=== PATIENT | female | born 1990 | race Caucasian/White ===

== ENCOUNTER → 2017-03-12 | Outpatient (CLI) | payer OTHER | END | disposition home or self-care (01) | LOC: C.PAPS 16:24 | PROVIDERS: ATTEND Physician Assistant | DX: Z12.4 Encounter for screening for malignant neoplasm of cervix (principal) ==

== ENCOUNTER → 2018-05-17 | Outpatient (CLI) | payer BC | END | disposition home or self-care (01) | LOC: C.LAB1850 14:04 | PROVIDERS: ATTEND Obstetrics & Gynecology | DX: E04.9 Nontoxic goiter, unspecified (principal) ==

== ENCOUNTER 2019-03-26 07:33 | Inpatient (IN) ==
[2019-03-26] MEDS ORDERED: LACTATED RINGER'S 1,000 ML IV PRN (08:14)
[2019-03-26] MEDS ORDERED: OXYTOCIN 30 UNITS/500 ML BAG IV PRN ×2 (08:14→13:12)
--- NOTE | 2019-03-26 08:14 | History & Physical Report ---
Date of Service March 26, 2019 Assessment & Plan (1) Gestational hypertension w/o significant proteinuria in 3rd trimester: BP currently below severe range despite discomforts of labor. Continue to observe. Present on Admission?: Yes (2) Normal labor and delivery: SROM and cervical change. Plans natural childbirth for now. Expectant management. Present on Admission?: Yes History of Present Illness Primary Care Provider: BENITA Mendoza 28yo presents with LOF clear at home, and painful contractions Q3-7 throughout the night. +FM no VB. 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; negative [place] teeth removed 2007 Surgical History H/O left knee surgery 2006 Family History Mother Hypertension Father Hypertension Aunt Hodgkins lymphoma Social History Preferred Language: [place] Communication Ability: Effective Beliefs That Will Affect Care: None marital status: Current Living Situation: Spouse Other Information That Helps Us Care for You: No Feels Safe at Home: Yes Smoking Status: Former smoker Do You Dip or Chew Tobacco: No Second Hand Exposure: No Tobacco Cessation Education Requested by Patient: No Hx Alcohol Use: No Hx Substance Use: No Physical Exam Genitourinary: Manual OB Exam: + cervical dilation 7 cm, + cervical effacement 100%, + station -1 and + amniotic fluid (forebag swept for additional clear fluid) clear OB Exam Monitor Tracing: + category I Results & Data Vital Signs (Past 12 Hours) Vital Signs Temp Pulse Resp BP 03/26/19 07:57 97 H 149/100 H 03/26/19 07:42 37.0 C 101 H 20 145/98 H
[2019-03-26 08:36] LABS: Hematocrit (blood only) 37.3 % (37-47); Hemoglobin 12.8 g/dL (12.0-16.0); Mean Corpuscular Volume 85.6 fL (80-100); Mean Platelet Volume 10.3 fL (7.4-10.4); Platelet Count 206 K/uL (130-400); RDW Coefficient of Variation 13.6 % (11.5-14.5); RDW Standard Deviation 42.1 fL (36.4-46.3); Red Blood Count 4.36 M/uL (4.2-5.4); White Blood Count 7.15 K/uL (4.8-10.8)
[2019-03-26 08:38] LABS: Mean Corpuscular Hgb Conc 34.3 g/dL (32-36)
[2019-03-26] MEDS: IBUPROFEN 600 MG TAB PO PRN ×2 (11:45→15:41)
[2019-03-26] MEDS ORDERED: ACETAMINOPHEN 325 MG TAB PO PRN (13:12)
[2019-03-26] MEDS ORDERED: BENZOCAINE 20% AER SPR 82.5 GM CAN EXT PRN (13:12)
[2019-03-26] MEDS ORDERED: HYDROCORTISONE ACETATE 25 MG SUPP PR PRN (13:12)
[2019-03-26] MEDS ORDERED: OXYCODONE/ACETAMINOPHEN 5mg/325mg TAB PO PRN (13:12)
[2019-03-26] MEDS ORDERED: DIPHTHERIA/TETANUS/PERTUSSIS 0.5 ML SYR/VIAL IM ONE (13:12)
[2019-03-26] MEDS ORDERED: SUPERCREAM 0.870% 15 GM JAR EXT PRN (13:12)
--- NOTE | 2019-03-26 15:33 | Procedure Note ---
Vaginal Delivery Summary Date of Service March 26, 2019 Vaginal Delivery Summary Vaginal Delivery Summary: Pre-delivery diagnoses: 28yo @ 38 1/7, spontaneous labor with SROM, SMA+ Post-delivery diagnoses: same Procedure: spontaneous vaginal delivery, repair of 2nd degree perineal laceration Surgeon: Mily Reddy DO Complications: none Findings: Viable female . Apgars: 8/9 . Weight pending, please see nursery records Estimated blood loss: 300ml Description of delivery: The patient progressed to complete without anesthesia. She then began to push. She spontaneously vaginally delivered a viable female from the cephalic presentation. The head delivered in LAURA position, nuchal cord x 1 was easily reduced. The anterior shoulder delivered, followed by the posterior shoulder, followed by the body. The baby was placed on mother's abdomen and a spontaneous cry was heard. Delayed cord clamping was employed, and the cord was doubly clamped and cut. Cord blood was obtained. The placenta was delivered spontaneously intact with a 3-vessel cord. The uterus and vagina were swept of clots and debris. IV pitocin was given. The uterus became firm. The cervix, vagina, and perineum were inspected and a 2nd degree perineal laceration was noted and repaired in standard fashion. Excellent hemostasis was observed. The mother and baby are recovering in stable and good condition in the room. Sponge, needle, and instrument counts were correct x 2. Mily Reddy DO [facility] [place]
[2019-03-26] MEDS: DOCUSATE SODIUM 100 MG CAP PO SCH (20:45)
[2019-03-27] MEDS: IBUPROFEN 600 MG TAB PO PRN ×2 (04:37→22:32)
[2019-03-27 06:46] LABS: Hematocrit (blood only) 33.1 % (37-47); Hemoglobin 11.3 g/dL (12.0-16.0); Mean Corpuscular Hgb Conc 34.1 g/dL (32-36); Mean Corpuscular Volume 86.9 fL (80-100); Platelet Count 203 K/uL (130-400); Red Blood Count 3.81 M/uL (4.2-5.4); White Blood Count 10.79 K/uL (4.8-10.8)
--- NOTE | 2019-03-27 06:55 | Obstetrical Progress Note ---
Date of Service March 27, 2019 Assessment & Plan (1) (spontaneous vaginal delivery): -vital signs reviewed and WNL -last Hgb 12.8 -Blood type: A+, GBS-, Rubella Immune -pt doing well clinically -encourage ambulation, monitor and control pain with motrin tylenol, cont regular diet, monitor lochia -cont encourage breast feeding -anticipate d/c tomorrow Subjective 28 y/o PPD1 found in bed this morning in NAD. Reports no acute overnight events. Pt states that she has no pain other than appropriate soreness. Tolerating PO intake without N/V. Able to ambulate without issue. She is breast feeding without issue. No issues with voiding, no BM yet but passing gas. No other acute concerns or complaints. Review of Systems All systems reviewed & are unremarkable except as noted in HPI & below Physical Exam Constitutional WD/WN, vitals as above Respiratory normal respiratory effort, lungs clear to auscultation Cardiovascular RRR, no murmur, no edema Gastrointestinal (Abdomen) mild abd tenderness Fundus at U, please correlate with attending findings Skin no rashes, warm and dry Psychiatric A+Ox3, euthymic affect Lymphatic no LE swelling, no calf tenderness Results & Data Vital Signs (Past 12 Hours) Vital Signs Temp Pulse Resp BP 03/27/19 04:35 36.9 C 87 16 135/88 03/27/19 00:15 37.2 C 75 18 133/88 03/26/19 20:45 36.9 C 88 18 127/83 Laboratory Results Laboratory Results - last 24 hr 03/26/19 03/27/19 08:25 06:25 WBC 7.15 10.79 RBC 4.36 3.81 L Hgb 12.8 11.3 L Hct 37.3 33.1 L MCV 85.6 86.9 MCH 29.4 29.7 MCHC 34.3 34.1 RDW Std Deviation 42.1 44.0 RDW Coeff of Veronica 13.6 14.0 Plt Count 206 203 MPV 10.3 10.0 Medications Administered Current Inpatient Medications Acetaminophen (Tylenol) 650 mg PO Q6H PRN PRN Reason: Pain/BOBBY/Fever Stop: 04/25/19 13:11 Benzocaine (Dermoplast Pain Relieving [place]) 1 appln EXT PRN PRN PRN Reason: Perineal Discomfort Stop: 04/25/19 13:11 Last Admin: 03/26/19 15:41 Dose: 82.5 appln Documented by: Bisacodyl (Dulcolax) 5 mg PO 1999 [facility] Stop: 03/27/19 20:01 Bisacodyl (Dulcolax) 10 mg SD DAILY PRN PRN Reason: No BM on 2nd post- day Stop: 03/28/19 23:59 Cetirizine HCl (Zyrtec) 10 mg PO DAILY [facility] Stop: 04/26/19 08:59 Cocaine HCl (Supercream 0.870%) 1 gm EXT BID PRN PRN Reason: Hemorrhoidal Inflammation Stop: 04/09/19 13:11 Last Admin: 03/26/19 15:41 Dose: 1 appln Documented by: Docusate Sodium (Colace) 100 mg PO BID [facility] Stop: 04/25/19 20:59 Last Admin: 03/26/19 20:45 Dose: 100 mg Documented by: Hydrocortisone (Anusol Hc) 25 mg SD BID PRN PRN Reason: Hemorrhoidal Inflammation Stop: 04/25/19 13:11 Oxytocin (Pitocin) 30 units in 500 mls @ 333.333 mls/hr IV .Q1H30M PRN; Protocol PRN Reason: Bleeding Control Stop: 04/25/19 13:11 Ibuprofen (Motrin) 600 mg PO Q6H PRN PRN Reason: Pain Stop: 04/25/19 11:32 Last Admin: 03/27/19 04:37 Dose: 600 mg Documented by: Oxycodone/Acetaminophen (Percocet 5mg/325mg) 1 tab PO Q4H PRN PRN Reason: Pain not relieved by... Stop: 04/09/19 13:11 Prenat Multivit/Restaurant Kitchen Manager/Iron/Folic Ac ( Vitamin) 1 tab PO QAM [facility] Stop: 04/26/19 08:59 Resident Activity Tracking Resident Involvement: Resident Care Provided Care Provided: OB Delivery
[2019-03-27] MEDS ORDERED: PRENATAL VITAMIN 1 TAB ONE (07:45)
[2019-03-27] MEDS: PRENATAL VITAMIN 1 TAB PO SCH (08:36)
[2019-03-27] MEDS: DOCUSATE SODIUM 100 MG CAP PO SCH ×2 (08:36→20:14)
[2019-03-27] MEDS: CETIRIZINE HCL 10 MG TABLET PO SCH (09:42)
[2019-03-27] MEDS ORDERED: BISACODYL 5 MG TABEC PO SCH (20:00)
[2019-03-28] MEDS ORDERED: BISACODYL 10 MG SUPP PR PRN (07:00)
[2019-03-28 07:16] LABS: Hematocrit (blood only) 32.3 % (37-47)
--- NOTE | 2019-03-28 07:21 | Obstetrical Progress Note ---
Date of Service <Estiven ShandaBrielle Cotto, - Last Filed: 03/28/19 07:21> March 28, 2019 Assessment & Plan <Estiven Cotto - Last Filed: 03/28/19 07:21> (1) (spontaneous vaginal delivery): -vital signs reviewed and WNL -last Hgb 11.3 -Blood type: A+, GBS-, Rubella Immune -pt doing well clinically -encourage ambulation, monitor and control pain with motrin tylenol, cont regular diet, monitor lochia -cont encourage breast feeding -plan for d/c today Subjective <Estiven ShandaBrielle Cotto DO - Last Filed: 03/28/19 07:21> 28 y/o PPD2 found in bed this morning in NAD. Reports no acute overnight events. Pt states that she has no pain other than appropriate soreness. Tolerating PO intake without N/V. Able to ambulate without issue. She is breast feeding without issue. No issues with voiding, no BM yet but passing gas. No other acute concerns or complaints. Pt ok with plan for d/c today. Review of Systems All systems reviewed & are unremarkable except as noted in HPI & below Physical Exam <Estiven ShandaBrielle Cotto, - Last Filed: 03/28/19 07:21> Constitutional WD/WN, vitals as above Respiratory normal respiratory effort, lungs clear to auscultation Cardiovascular RRR, no murmur, no edema Gastrointestinal (Abdomen) mild abd tenderness Fundus at U, correlate with attending findings Skin no rashes, warm and dry Psychiatric A+Ox3, euthymic affect Lymphatic no LE swelling, no calf tenderness Results & Data <Estiven Toya Yadiel, - Last Filed: 03/28/19 07:21> Vital Signs (Past 12 Hours) Vital Signs Temp Pulse Resp BP Pulse Ox 03/27/19 23:40 36.8 C 84 18 129/88 99 Laboratory Results Laboratory Results - last 24 hr 03/28/19 06:27 Hgb 11.0 L Hct 32.3 L Medications Administered Current Inpatient Medications Acetaminophen (Tylenol) 650 mg PO Q6H PRN PRN Reason: Pain/BOBBY/Fever Stop: 04/25/19 13:11 Benzocaine (Dermoplast Pain Relieving [place]) 1 appln EXT PRN PRN PRN Reason: Perineal Discomfort Stop: 04/25/19 13:11 Last Admin: 03/26/19 15:41 Dose: 82.5 appln Documented by: Bisacodyl (Dulcolax) 10 mg NM DAILY PRN PRN Reason: No BM on 2nd post- day Stop: 03/28/19 23:59 Cetirizine HCl (Zyrtec) 10 mg PO DAILY [facility] Stop: 04/26/19 08:59 Last Admin: 03/27/19 09:42 Dose: Not Given Documented by: Cocaine HCl (Supercream 0.870%) 1 gm EXT BID PRN PRN Reason: Hemorrhoidal Inflammation Stop: 04/09/19 13:11 Last Admin: 03/26/19 15:41 Dose: 1 appln Documented by: Docusate Sodium (Colace) 100 mg PO BID [facility] Stop: 04/25/19 20:59 Last Admin: 03/27/19 20:14 Dose: 100 mg Documented by: Hydrocortisone (Anusol Hc) 25 mg NM BID PRN PRN Reason: Hemorrhoidal Inflammation Stop: 04/25/19 13:11 Oxytocin (Pitocin) 30 units in 500 mls @ 333.333 mls/hr IV .Q1H30M PRN; Protocol PRN Reason: Bleeding Control Stop: 04/25/19 13:11 Ibuprofen (Motrin) 600 mg PO Q6H PRN PRN Reason: Pain Stop: 04/25/19 11:32 Last Admin: 03/27/19 22:32 Dose: 600 mg Documented by: Oxycodone/Acetaminophen (Percocet 5mg/325mg) 1 tab PO Q4H PRN PRN Reason: Pain not relieved by... Stop: 04/09/19 13:11 Prenat Multivit/Yard Specialist/Iron/Folic Ac ( Vitamin) 1 tab PO QAM [facility] Stop: 04/26/19 08:59 Last Admin: 03/27/19 08:36 Dose: 1 tab Documented by: <Susana Jon MD, FACOG - Last Filed: 03/28/19 07:48> Co-Signing Physician Notes Resident Physician Supervision Note: I interviewed and examined the patient. Discussed with Dr. Skyler Cotto and agree with findings and plan as documented in the note. Any exceptions or clarifications are listed here: [None] Documented By: Susana Jon MD, FACOG Resident Activity Tracking <Estiven Cotto, - Last Filed: 03/28/19 07:21> Resident Involvement: Resident Care Provided Care Provided: OB Delivery
[2019-03-28] MEDS: DOCUSATE SODIUM 100 MG CAP PO SCH (08:12)
[2019-03-28] MEDS: PRENATAL VITAMIN 1 TAB PO SCH (08:13)
[2019-03-28] MEDS: CETIRIZINE HCL 10 MG TABLET PO SCH (08:14)
== END 2019-03-28 12:50 | disposition home or self-care (01) | DRG 807 ==
LOC: OPB 07:33 → 4S1 07:39 → 4S2 12:49
DX: O13.4 Gestational [pregnancy-induced] hypertension without significant proteinuria, complicating childbirth; O70.1 Second degree perineal laceration during delivery; Z37.0 Single live birth; Z3A.38 38 weeks gestation of pregnancy